=== PATIENT | male | born 1960 | race Two or more races ===

== ENCOUNTER 2021-04-24 09:35 | Emergency (ER) | payer OTHER ==
[~2021-04-24] VITALS: Ht 167.6 cm; Wt 83.9 kg
[2021-04-24] MEDS ORDERED: HORIZANT300 MG (10:07)
[2021-04-24] MEDS ORDERED: MEDROL4 MG (10:07)
[2021-04-24] MEDS ORDERED: AK PENTOLATE (10:07)
[2021-04-24] MEDS ORDERED: PERCOCET 5-3251 EACH PO (13:40)
[2021-04-24] MEDS ORDERED: DICLOFENAC SOD100 MG PO (13:40)
[2021-04-24] MEDS ORDERED: SKELAXIN800 MG PO (13:40)
[2021-06-23] MEDS ORDERED: CYCLOBENZAPRINE10 MG PO (11:31)
== END 2021-04-24 14:18 ==
LOC: ER 09:35
DX: M54.5 Low back pain (principal)

== ENCOUNTER 2021-12-21 09:11 | Outpatient (CLI) | payer OTHER ==
[~2021-12-21 09:11] MED LIST: AK PENTOLATE; CYCLOBENZAPRINE10 MG PO; DICLOFENAC POTA50 MG PO; DICLOFENAC SOD100 MG PO; HORIZANT300 MG; MEDROL4 MG; METHOCARBAMOL500 MG PO; PERCOCET 5-3251 EACH PO; SKELAXIN800 MG PO
== END 2021-12-21 09:18 | disposition home or self-care (01) ==
LOC: NUCLEAR 09:11
PROVIDERS: ATTEND Internal Medicine Hematology & Oncology
DX: D45 Polycythemia vera (principal)

== ENCOUNTER 2023-09-13 10:07 | Emergency (ER) | payer OTHER ==
[~2023-09-13] VITALS: Ht 172.7 cm; Wt 82.6 kg
[~2023-09-13 10:07] MED LIST changes: +METHOCARBAMOL750 MG PO
== END 2023-09-13 12:42 | disposition home or self-care (01) ==
LOC: ER 10:08
DX: B34.9 Viral infection, unspecified (principal); Z20.822 Contact with and (suspected) exposure to COVID-19
CPT/HCPCS: 36415; 96372; 99284; J1885

== ENCOUNTER 2024-08-03 10:11 | Outpatient (CLI) | payer OTHER | END 2024-08-03 10:16 | disposition home or self-care (01) | LOC: MRI 10:11 | PROVIDERS: ATTEND General Practice | DX: M54.50 Low back pain, unspecified (principal); G89.29 Other chronic pain | CPT/HCPCS: 72148 ==

== ENCOUNTER 2024-09-04 07:10 | Outpatient (CLI) | payer OTHER | END 2024-09-04 07:20 | disposition home or self-care (01) | LOC: TOM 07:10 | PROVIDERS: ATTEND General Practice | DX: R10.9 Unspecified abdominal pain (principal); R30.0 Dysuria; R68.83 Chills (without fever) ==

== ENCOUNTER 2025-07-28 22:24 | Emergency (ER) | payer OTHER ==
[~2025-07-28] VITALS: Ht 172.7 cm; Wt 84.4 kg
[2025-07-28] MEDS ORDERED: ORPHENADRINE CI25 GM MC (22:56)
[2025-07-28] MEDS ORDERED: SIMVASTATIN5 MG PO (22:56)
[2025-07-28 22:57] VITALS: BP 140/73; O2SAT 98
[2025-07-28] MEDS ORDERED: ZIPSOR25 MG PO (22:57)
[2025-07-28] MEDS ORDERED: CEFTRIAXONE SODIUM 1,000 MG VIAL IM STA (23:52)
[2025-07-28] MEDS ORDERED: KETOROLAC TROMETHAMINE 10 MG TABLET PO STA (23:52)
[2025-07-28] MEDS ORDERED: PHENAZOPYRIDINE HCL 100 MG TABLET PO STA (23:52)
[2025-07-29 02:01] LABS: URINE APPEARANCE Cloudy; URINE BILIRRUBIN Negative (NEGATIVE); URINE BLOOD Large; URINE COLOR Dark Yellow; URINE GLUCOSE Negative (NEGATIVE); URINE KETONE Trace (NEGATIVE); URINE LEUKOCYTE Negative; URINE NITRATE Negative; URINE PROTEIN 30 (NEGATIVE); URINE UROBILINOGEN 1.0 E.U./dl
[2025-07-29 02:05] LABS: URINE BACTERIA 22.8 uL (0.0-1933); URINE CAST 1.90 uL (0.0-1.40); URINE EPITHELIAL CELLS 6.9 uL (0.0-38.8); URINE RBC 86.5 uL (0.0-20.8); URINE WBC 9.8 uL (0.0-23.2)
[2025-07-29] MEDS ORDERED: KETO10TA2 PO (02:56)
[2025-07-29] MEDS ORDERED: CIPRO500 MG PO (02:56)
[2025-07-29] MEDS ORDERED: PYRIDIUM DS200 MG PO (02:56)
== END 2025-07-29 03:29 ==
LOC: ER 22:24
PROVIDERS: General Practice
DX: N39.0 Urinary tract infection, site not specified (principal)

== ENCOUNTER 2025-09-08 10:42 | Outpatient (CLI) | payer OTHER ==
[~2025-09-08 10:42] MED LIST changes: +CIPRO500 MG PO; +KETO10TA2 PO; +ORPHENADRINE CI25 GM MC; +PYRIDIUM DS200 MG PO; +SIMVASTATIN5 MG PO; +ZIPSOR25 MG PO
== END 2025-09-08 10:44 | disposition home or self-care (01) ==
LOC: TOM 10:42
PROVIDERS: ATTEND Urology
DX: R31.29 Other microscopic hematuria (principal)